=== PATIENT | female | born 1970 | race Caucasian/White ===

== ENCOUNTER → 2018-07-30 | Outpatient (CLI) | payer OTHER ==
[~2018-07-30] MED LIST: ASACOL400 MG PO; CELEXA 20 MG TA20 M1 PO; EXCEDRIN CAPLE1 EACH PO; IBUPROFEN 200200 M1 PO; PROVERA10 MG PO; TOPROL XL25 MG PO
== END ==
LOC: ULTRA 10:53
DX: R22.1 Localized swelling, mass and lump, neck (principal)

== ENCOUNTER → 2018-10-20 | Outpatient (CLI) | payer OTHER | LOC: RAD 10:25 | DX: R05 Cough (principal) ==

== ENCOUNTER → 2019-11-29 | Outpatient (CLI) | payer OTHER | LOC: LAB 07:56 | PROVIDERS: ATTEND Nurse Practitioner | DX: Z20.828 Contact with and (suspected) exposure to other viral communicable diseases (principal) ==

== ENCOUNTER → 2020-05-11 | Outpatient (CLI) | payer BC, OTHER | LOC: LAB 14:22 | PROVIDERS: ATTEND Nurse Practitioner | DX: R50.9 Fever, unspecified (principal); R05 Cough; Z20.822 Contact with and (suspected) exposure to COVID-19 ==